=== PATIENT | male | born 1995 | race Caucasian/White ===

== ENCOUNTER 2018-08-02 00:05 | Emergency (ER) | payer MEDICAID ==
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
[2018-08-02] MEDS ORDERED: HYDROcod/ACETAM 5/325 MG TABLET PO STA (01:51)
[2018-08-02 02:13] VITALS: BP 138/86
== END 2018-08-02 02:00 | disposition home or self-care (01) ==
LOC: ED 00:05
DX: S63.501A Unspecified sprain of right wrist, initial encounter (principal); Y04.2XXA Assault by strike against or bumped into by another person, initial encounter; F17.200 Nicotine dependence, unspecified, uncomplicated
CPT/HCPCS: 73130; 99283; A9270

== ENCOUNTER 2019-01-04 17:29 | Outpatient (CLI) | payer MEDICAID | END 2019-01-04 17:30 | disposition critical access hospital (66) | LOC: EMS 17:29 | PROVIDERS: ATTEND Surgery | DX: S69.91XA Unspecified injury of right wrist, hand and finger(s), initial encounter (principal); Y04.2XXA Assault by strike against or bumped into by another person, initial encounter | CPT/HCPCS: A0425; A0429; A0999 ==

== ENCOUNTER 2019-01-04 17:52 | Emergency (ER) | payer MEDICAID ==
[2019-01-04] MEDS ORDERED: HYDROcod/ACETAM 5/325 MG TABLET PO STA (17:58)
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
--- NOTE | 2019-01-04 18:58 | XRAY Report ---
Reason: hand inj Procedure Date: 01/04/2019 Accession Number: [id number] / [id number] Procedure: XR - Hand 3 View RT CPT Code: FULL RESULT: EXAM: RIGHT HAND RADIOGRAPHY EXAM DATE: 01/04/2019 06:19 PM. CLINICAL HISTORY: Right hand injury COMPARISON: HAND 3 VIEW RT 08/02/2018 12:55 AM. TECHNIQUE: 3 views. FINDINGS: Bones: Transverse fracture of the mid fourth metacarpal diaphysis, with mild dorsal displacement and anterior angulation at the fracture site. Joints: Normal. No subluxations. Soft Tissues: Swelling overlying the fracture site. Multiple tiny radiopacities along the skin surface of the second to fifth digits. IMPRESSION: Mildly displaced and angulated transverse fourth metacarpal fracture. RADIA
[2019-01-04 19:09] VITALS: BP 114/73
[2019-01-04] MEDS ORDERED: oxyCODONE 5 MG TABLET PO STA (19:38)
== END 2019-01-04 20:09 | disposition home or self-care (01) ==
LOC: EDUNIT# → ED 17:52
DX: S62.324A Displaced fracture of shaft of fourth metacarpal bone, right hand, initial encounter for closed fracture (principal); W51.XXXA Accidental striking against or bumped into by another person, initial encounter; Y92.009 Unspecified place in unspecified non-institutional (private) residence as the place of occurrence of the external cause; F17.200 Nicotine dependence, unspecified, uncomplicated
CPT/HCPCS: 29125; 73130; 99282; 99283; A9270

== ENCOUNTER 2019-01-22 10:27 | Outpatient (CLI) | payer MEDICAID ==
--- NOTE | 2019-01-22 11:05 | XRAY Report ---
Reason: HAND JOLINT PAIN,RIGHT Procedure Date: 01/22/2019 Accession Number: [id number] / [id number] Procedure: WCP - Hand 3 View RT CPT Code: FULL RESULT: EXAM: RIGHT HAND RADIOGRAPHY EXAM DATE: 01/22/2019 10:24 AM. CLINICAL HISTORY: Continued right hand pain. COMPARISON: HAND 3 VIEW RT 01/04/2019 6:03 PM. TECHNIQUE: 3 views. FINDINGS: Bones: There has been no change in position of transverse right mid fourth metacarpal fracture with mild volar angulation at the fracture site. There has been interval callus formation. Joints: Normal. No subluxations. Soft Tissues: Normal. No soft tissue swelling. IMPRESSION: No change in position of the mildly angulated partially healed right mid fourth metacarpal fracture. RADIA
== END 2019-01-22 10:28 | disposition home or self-care (01) ==
LOC: DI.WCP 10:27
PROVIDERS: ATTEND Family Medicine
DX: S62.324D Displaced fracture of shaft of fourth metacarpal bone, right hand, subsequent encounter for fracture with routine healing (principal)

== ENCOUNTER 2019-01-27 09:01 | Day surgery (SDC) | payer MEDICAID ==
[2019-01-27] MEDS ORDERED: CEFAZOLIN SODIUM IN 0.9 % NACL 0 GM/0 ML BAG IV ONE (09:13)
[2019-01-27] MEDS ORDERED: LACTATED RINGERS 1,000 ML IV ONE (10:21)
--- NOTE | 2019-01-27 10:42 | ANESTHESIA ---
Pre-Anesthesia VS, & Labs - Diagnosis Right 4th metacarpal fracture - Procedure ORIF right 4th metacarpal Vital Signs: Temp Pulse Resp BP Pulse Ox 2.9 C L 92 17 129/78 92 01/27/19 10:28 01/27/19 10:28 01/27/19 10:28 01/27/19 10:28 01/27/19 10:28 Height 5 ft 9 in Weight (kg) 66 kg Body Mass Index 22.1 - NPO >8 hours Home Medications and Allergies Allergies/Adverse Reactions: Allergies Allergy/AdvReac Type Severity Reaction Status Date / Time No Known Drug Allergies Allergy Verified 01/04/19 17:57 Anes History & Medical History - Anesthetic History Anesthesia Complications: reports: No previous complications Family history of Anesthesia Complications: Denies Family history of Malignant Hyperthermia: Denies - Medical History Cardiovascular: reports: None Pulmonary: reports: None Gastrointestinal: reports: None Urinary: reports: None Neuro: reports: None Musculoskeletal: reports: None Endocrine/Autoimmune: reports: None Blood Disorders: reports: None Skin: reports: None Smoking Status: Current every day smoker Psychosocial: reports: Cannabis Exam General: Alert, Oriented x3, Cooperative Dental: WNL Mouth Opening: Greater than 4 Fingerbreadths Neck Mobility: Normal Mallampati classification: I Thyromental Distance: greater than 6 cm Respiratory: Lungs clear Cardiovascular: Regular rate Neurological: Normal speech Mental/Cognitive Status: Alert/Oriented X3 Cognitive Status: Within normal limits Plan Anesthesia Type: General Consent for Procedure(s) Verified and Reviewed: Yes Code Status: Attempt Resuscitation ASA classification: 2-Mild systemic disease Is this case an emergency?: No
[2019-01-27] MEDS ORDERED: CEFAZOLIN SODIUM IN 0.9 % NACL 2 GM/100 ML BAG IV ONE ×2 (10:48→13:20)
[2019-01-27] MEDS ORDERED: ROPIVACAINE 0.5% PF 20 ML AMPULE ONE (11:53)
[2019-01-27] MEDS ORDERED: ROPIVACAINE 0.5% PF 20 ML AMPULE SUBQ ONE (12:45)
[2019-01-27] MEDS ORDERED: LIDOCAINE-MPF 2% 5 ML VIAL IM ONE (13:20)
[2019-01-27] MEDS ORDERED: MIDAZOLAM 2 MG/2 ML VIAL IVP ONE (13:20)
[2019-01-27] MEDS ORDERED: fentaNYL 100 MCG/2 ML VIAL IVP ONE (13:20)
[2019-01-27] MEDS ORDERED: PROPOFOL 200 MG/20 ML VIAL IVP ONE (13:20)
[2019-01-27] MEDS ORDERED: ONDANSETRON 4 MG/2 ML VIAL IVP ONE (13:20)
[2019-01-27] MEDS ORDERED: oxyCODONE 5 MG TABLET PO PRN (13:44)
[2019-01-27] MEDS: HYDROmorphone 1 MG/ML CARPUJECT ONE ×3 (14:00→14:12)
[2019-01-27] MEDS ORDERED: fentaNYL 100 MCG/2 ML VIAL ONE (14:24)
[2019-01-27 14:32] VITALS: BP 122/77
[2019-01-27] MEDS ORDERED: oxyCODONE 5 MG TABLET ONE (15:05)
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
== END 2019-01-27 09:02 | disposition home or self-care (01) ==
LOC: SDS 09:01
PROVIDERS: ATTEND Orthopaedic Surgery
PROC: 0PSP04Z Reposition Right Metacarpal with Internal Fixation Device, Open Approach (ICD-10-PCS; principal; 2019-01-27 10:25)
DX: S62.324P Displaced fracture of shaft of fourth metacarpal bone, right hand, subsequent encounter for fracture with malunion (principal); F17.200 Nicotine dependence, unspecified, uncomplicated
CPT/HCPCS: 26615; A9270; C1713; J0690; J1170; J7120

== ENCOUNTER 2019-02-07 15:24 | Outpatient (CLI) | payer MEDICAID | END 2019-02-07 15:25 | disposition short-term general hospital (02) | LOC: EMS 15:24 | PROVIDERS: ATTEND Surgery | DX: M25.551 Pain in right hip (principal); R51 Headache; M25.521 Pain in right elbow; V59.50XA Passenger in pick-up truck or van injured in collision with unspecified motor vehicles in traffic accident, initial encounter; Y92.413 State road as the place of occurrence of the external cause | CPT/HCPCS: A0425; A0427; A0999 ==

== ENCOUNTER 2019-06-05 08:15 | Outpatient (CLI) | payer MEDICAID ==
[2019-06-05 12:31] LABS: MUDS CUTOFF CONCENTRATIONS CUTOFF CONC BELOW:
[2019-06-05 12:45] LABS: AMPHETAMINE SCREEN,URINE POSITIVE (NEGATIVE); COCAINE SCREEN URINE NEGATIVE (NEGATIVE); METHAMPHETAMINES SCREEN, URINE NEGATIVE (NEGATIVE); OPIATE SCREEN, URINE NEGATIVE (NEGATIVE)
[2019-06-05 12:46] LABS: BENZODIAZEPINES SCREEN, URINE NEGATIVE (NEGATIVE); METHADONE SCREEN, URINE NEGATIVE (NEGATIVE); OXYCODONE SCREEN, URINE NEGATIVE (NEGATIVE); PROPOXYPHENE SCREEN, URINE NEGATIVE (NEGATIVE); TRICYCLIC ANTIDEPRESSANT,URINE NEGATIVE (NEGATIVE)
== END 2019-06-05 23:59 | disposition home or self-care (01) ==
LOC: LAB.R 08:15
PROVIDERS: ATTEND Family Medicine
DX: M25.551 Pain in right hip (principal); F32.9 Major depressive disorder, single episode, unspecified; F41.9 Anxiety disorder, unspecified
CPT/HCPCS: 80306

== ENCOUNTER 2019-09-29 11:50 | Emergency (ER) | payer MEDICAID ==
[2019-09-29 12:00] VITALS: BP 132/83
== END 2019-09-29 12:44 | disposition left against medical advice (07) ==
LOC: ED 11:50
DX: Z53.21 Procedure and treatment not carried out due to patient leaving prior to being seen by health care provider (principal)

== ENCOUNTER 2020-01-09 06:05 | Emergency (ER) | payer MEDICAID ==
[2020-01-09 06:16] VITALS: BP 148/84
[2020-01-09] MEDS ORDERED: NAPROXEN 250 MG TABLET PO STA (07:31)
[2020-01-09] MEDS ORDERED: DOXYCYCLINE 100 MG TABLET PO STA (07:31)
--- NOTE | 2020-01-09 07:31 | ED Physician Documentation ---
PD HPI SKIN - Stated complaint Stated Complaint: STOMACH PX - Chief complaint Chief Complaint: Wound - History obtained from History obtained from: Patient - History of Present Illness Timing - onset: How many days ago (several) Timing - duration: Days (several) Timing - details: Gradual onset, Still present Location: Abdomen Quality / character: Painful, Swelling, Other (He states he injected himself with a blood thinner that he had left over from a surgery about 6 months ago. He states he was feeling that he was cold and having poor circulation and thought the injection would help. He states he had a few leftover and had done that episodically. He denies recreational drug use.). No: Itchy, Discolored Review of Systems Constitutional: denies: Fever, Chills, Myalgias Nose: denies: Rhinorrhea / runny nose, Congestion Throat: denies: Sore throat Respiratory: denies: Cough GI: denies: Vomiting, Diarrhea, Bloody / black stool PD PAST MEDICAL HISTORY - Past Medical History Past Medical History: Yes Cardiovascular: None Respiratory: None Neuro: None Endocrine/Autoimmune: None GI: None : None HEENT: None Psych: Anxiety Musculoskeletal: None Derm: None - Past Surgical History Past Surgical History: Yes Ortho: Other - Present Medications Home Medications: Ambulatory Orders Medication Instructions Recorded Confirmed DULoxetine [Cymbalta] 20 mg PO DAILY 01/09/20 01/09/20 Doxycycline Monohydrate 100 mg PO BID #14 tablet 01/09/20 Naproxen 375 mg PO BID #20 tablet 01/09/20 - Allergies Allergies/Adverse Reactions: Allergies Allergy/AdvReac Type Severity Reaction Status Date / Time No Known Drug Allergies Allergy Verified 09/29/19 11:58 - Social History Does the pt smoke?: Yes Smoking Status: Current every day smoker Does the pt drink ETOH?: Yes Does the pt have substance abuse?: Yes - Immunizations Immunizations are current?: Yes - POLST Patient has POLST: No PD ED PE NORMAL - Vitals Vital signs reviewed: Yes - General General: Alert and oriented X 3, No acute distress, Well developed/nourished - Abdomen Abdomen: Other (Right lower abdominal wall shows a subcutaneous area of firmness palpable only about 1 cm in diameter. There is no fluctuance felt to it. There is no redness or warmth of the skin overlying it. The area is freely movable from the underlying rectus abdominis muscle. There is no deeper te nderness to palpation of the abdomen. Bowel sounds are present normally active.) - Derm Derm: Normal color, Warm and dry - Extremities Extremities: Normal ROM s pain - Neuro Neuro: Alert and oriented X 3, No motor deficit, Normal speech Results - Vitals Vitals: Vital Signs - 24 hr 01/09/20 06:14 Temperature 98.4 C H Heart Rate 104 H Respiratory 18 Rate Blood Pressure 148/84 H O2 Saturation 100 Oxygen O2 Source Room air PD MEDICAL DECISION MAKING - ED course Complexity details: considered differential (I did discuss with him that blood thinner such as Lovenox does not really "improve circulation" and that good hydration and nutrition are the best means for doing that. He states he did not have any more left over of the inject double medicines. He denied recreational drug use. The lesion is a little bit deeper than I would anticipate for skin popping such as heroin. At this point it seems likely to be either small hematoma subcutaneously or small abscess. We can treated with NSAIDs and antibiotics. It was not big enough to need incision and drainage.), d/w patient Departure - Departure Disposition: 01 Home, Self Care Clinical Impression: Abdominal wall abscess Condition: Stable Record reviewed to determine appropriate education?: Yes Instructions: ED Staph Infec Abx Tx Only Prescriptions: Doxycycline Monohydrate 100 mg PO BID #14 tablet Naproxen 375 mg PO BID #20 tablet Comments: If you can, try some warm towels to the area couple of times a day to help improve blood flow to the area and improve the problem. Doxycycline antibiotic twice daily for a week for presumed small localized infection. It is possible it may be just a collection of blood there (called a hematoma) and will absorb up slowly over time. Naproxen anti-inflammatory twice daily to help reduce inflammation and tenderness. This should decrease in tenderness over the next several days to week and the lump itself may take a week or 2 to fully go away. Recheck if it does not or worsens. Discharge Date/Time: 01/09/20 07:42
== END 2020-01-09 07:42 | disposition home or self-care (01) ==
LOC: ED 06:05
DX: L02.211 Cutaneous abscess of abdominal wall (principal); F17.200 Nicotine dependence, unspecified, uncomplicated
CPT/HCPCS: 99282; 99284; A9270

== ENCOUNTER 2020-03-30 17:42 | Emergency (ER) | payer MEDICAID ==
--- NOTE | 2020-03-30 18:12 | ED Physician Documentation ---
History of Present Illness - Stated complaint Stated Complaint: HEAD INJ - Chief complaint Chief Complaint: Laceration - Additonal information Additional information: 24-year-old male comes to the emergency department for evaluation of a head injury. He was with a friend who was utilizing a hammer and the hammer broke and the hammer head flew and hit him in his left upper forehead. He had no loss of consciousness but does have a superficial appearing laceration just below his hairline. He denies any previous history of head injury or trauma. In triage of the nurses noted mild pupil asymmetry with the right pupil being slightly lar tana than the left. He has no obvious focal neuro deficits. Past medical history is negative for hypertension diabetes. He does smoke and socially drink as well as use cannabis but he denies any other illicit drug use. On initial exam in the room he appears very well he is alert oriented and in no acute distress. Review of Systems Constitutional: denies: Fever, Chills Eyes: denies: Loss of vision, Decreased vision, Photophobia Ears: denies: Loss of hearing Nose: denies: Rhinorrhea / runny nose Throat: denies: Dental pain / toothache, Oral lesions / sores, Sore throat Cardiac: denies: Chest pain / pressure, Palpitations Respiratory: denies: Dyspnea, Cough GI: denies: Abdominal Pain, Abdominal Swelling, Nausea : denies: Dysuria, Frequency Skin: denies: Rash, Lesions Musculoskeletal: denies: Neck pain, Back pain Neurologic: reports: Head injury (scalp contusion left forehead). denies: Generalized weakness, Focal weakness, Numbness, Difficulty speaking, Syncope, Seizure, Confused, Altered mental status, Headache, LOC PD PAST MEDICAL HISTORY - Past Medical History Cardiovascular: None Respiratory: None Neuro: None Endocrine/Autoimmune: None GI: None : None HEENT: None Psych: Anxiety Musculoskeletal: None Derm: None - Past Surgical History Past Surgical History: Yes Ortho: Other - Present Medications Home Medications: Ambulatory Orders Medication Instructions Recorded Confirmed DULoxetine [Cymbalta] 20 mg PO DAILY 01/09/20 01/09/20 Doxycycline Monohydrate 100 mg PO BID #14 tablet 01/09/20 Naproxen 375 mg PO BID #20 tablet 01/09/20 Ibuprofen [Motrin] 600 mg PO Q6H PRN #30 tab 03/30/20 - Allergies Allergies/Adverse Reactions: Allergies Allergy/AdvReac Type Severity Reaction Status Date / Time No Known Drug Allergies Allergy Verified 09/29/19 11:58 - Social History Does the pt smoke?: Yes Smoking Status: Current every day smoker Does the pt drink ETOH?: Yes Does the pt have substance abuse?: Yes - Immunizations Immunizations are current?: Yes - POLST Patient has POLST: No PD ED PE NORMAL - General General: Alert and oriented X 3, No acute distress, Well developed/nourished - HEENT HEENT: PERRL (Very mild pupil asymmetry noted. Right pupil 4 mm briskly reactive. Left pupil 3 mm briskly reactive. Positive accommodation bilateral), EOMI, Ears normal, Moist mucous membranes, Pharynx benign, Other (contusion left scalp just below hairline on forehead) - Neck Neck: Supple, no meningeal sign, No adenopathy - Cardiac Cardiac: RRR, No murmur - Respiratory Respiratory: No respiratory distress - Abdomen Abdomen: Normal bowel sounds, Soft - Back Back: No CVA TTP - Derm Derm: Normal color, Warm and dry, Other (1.5 cm laceration left upper forehead) - Extremities Extremities: No deformity, No tenderness to palpate, Normal ROM s pain, No edema - Neuro Neuro: Alert and oriented X 3, chairman & ceo 2-12 intact, No motor deficit, No sensory deficit, Normal speech Results - Vitals Vitals: Vital Signs - 24 hr 03/30/20 03/30/20 17:48 19:32 Temperature 36.8 C Heart Rate 99 81 Respiratory 16 20 Rate Blood Pressure 118/68 112/69 O2 Saturation 100 99 Oxygen O2 Source Room air - Rads (name of study) CT head Radiology: Final report received (No CT evidence of acute intracranial pathology. No gross acute skull fracture. Bilateral orbital mobley are not fact) Procedures - Laceration (location) forehead laceration Length in cm: 1.5 Wound type: Irregular Neurovascular status: Sensory intact Wound Preparation: Chlorhexadine, Hibiclens Skin layer closure: Nylon, Size #-0 - enter number (4), Sutures - enter # (2) Other: Patient tolerated well, No complications, Neurovascular intact Complexity: Simple PD MEDICAL DECISION MAKING - ED course Complexity details: reviewed results, considered differential, d/w patient ED course: 24-year-old male brought to the emergency department for evaluation of head injury. He was helping a friend work on a car when a hammer that they were using broke and hit him in his left forehead. He had no loss of consciousness. ER nurses noted mild pupil asymmetry at triage though that had nearly fully abated by the time of my initial exam. He however had no other focal neuro deficits. A head CT was completed and did not show any intracranial injury or skull fracture. During his time in the emergency department he is remained alert and oriented with no focal neuro deficits cerebellar exam is intact. The laceration to his left upper forehead was closed with 2 sutures. He does have a sizable contusion surrounding that laceration. He does endorse a mild headache and we did discuss routine concussion and emergent return precautions. Departure - Departure Disposition: 01 Home, Self Care Clinical Impression: Head contusion Qualifiers: Encounter type: initial encounter Contusion of head detail: other part of head Qualified Code(s): S00.83XA - Contusion of other part of head, initial encounter Forehead laceration Qualifiers: Encounter type: initial encounter Qualified Code(s): S01.81XA - Laceration without foreign body of other part of head, initial encounter Concussion Qualifiers: Encounter type: initial encounter Loss of consciousness presence/duration: without LOC Qualified Code(s): S06.0X0A - Concussion without loss of consciousness, initial encounter Condition: Stable Instructions: ED Head Injury Closed, ED Laceration All, Concussion Dc Prescriptions: Ibuprofen [Motrin] 600 mg PO Q6H PRN #30 tab PRN Reason: Pain Comments: Quang the CT scan did not show any skull fractures or broken bones in your face. It also did not show any bruising bleeding or swelling in your brain. You do have a contusion or bruising on your forehead surrounding the laceration. The 2 sutures that were placed today should come out in about 5 days. You can gently wash the laceration with warm soap and water apply any antibiotic ointment and a simple bandage. You do most likely have a concussion following this injury. I do recommend you get plenty of sleep at home stay well-hydrated. Please avoid cannabis use, extended TV or video game playing. You can take Tylenol or ibuprofen as prescribed for pain. If you develop a suddenly severe headache, have slurred speech arm or leg weakness or have uncontrolled vomiting please return immediately to the emergency department
[2020-03-30] MEDS ORDERED: TETANUS/DIPHTHERIA/PERTUSSIS 0.5 ML SYRINGE IM ONE (18:32)
[2020-03-30 19:32] VITALS: BP 112/69
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
[2020-03-30] MEDS ORDERED: IBUPROFEN 600 MG TABLET PO STA (20:29)
== END 2020-03-30 20:50 | disposition home or self-care (01) ==
LOC: ED 17:42
DX: S01.81XA Laceration without foreign body of other part of head, initial encounter (principal); S06.0X0A Concussion without loss of consciousness, initial encounter; W20.8XXA Other cause of strike by thrown, projected or falling object, initial encounter; W27.8XXA Contact with other nonpowered hand tool, initial encounter; Y93.89 Activity, other specified; F17.200 Nicotine dependence, unspecified, uncomplicated; Z23 Encounter for immunization
CPT/HCPCS: 12011; 70450; 90471; 90715; 99284; A9270

== ENCOUNTER 2020-07-08 03:01 | Emergency (ER) | payer MEDICAID ==
--- NOTE | 2020-07-08 03:12 | ED Physician Documentation ---
History of Present Illness - Stated complaint Stated Complaint: RT ARM PX - Chief complaint Chief Complaint: Ext Problem - History obtained from History obtained from: Patient - History of Present Illness Timing: How many minutes ago (20-30) Pain level max: 0 Pain level now: 0 Improved by: nothing Worsened by: no exacerbating factors - Additonal information Additional information: patient has c/o related to his RUE but difficulty in describing his symptoms. he denies any pain, weakness or numbness. denies injury. patient says approximately 20-30 minutes [employer]EE[employer] while smoking marijuana, he had rapid onset of sensation of all of my muscles twisting and bunching up here (points to his wrist). he says he has intermittent sensation of bubbles or air under my skin of RUE. he is right hand dominant. he says he has used marijuana many times without similar symptoms. He says his symptoms are most pronounced in right FA and wrist but involve entire RUE up to shoulder. no exacerbating or ameliorating factors Review of Systems Constitutional: denies: Fever Skin: reports: Reviewed and negative Musculoskeletal: denies: Neck pain, Extremity pain, Joint pain, Extremity swelling PD PAST MEDICAL HISTORY - Past Medical History Cardiovascular: None Respiratory: None Neuro: None Endocrine/Autoimmune: None GI: None : None HEENT: None Psych: Anxiety Musculoskeletal: None Derm: None - Past Surgical History Past Surgical History: Yes Ortho: Other - Allergies Allergies/Adverse Reactions: Allergies Allergy/AdvReac Type Severity Reaction Status Date / Time No Known Drug Allergies Allergy Verified 07/08/20 03:14 - Social History Does the pt smoke?: Yes Smoking Status: Current every day smoker Does the pt drink ETOH?: Yes Does the pt have substance abuse?: Yes - Immunizations Immunizations are current?: Yes - POLST Patient has POLST: No PD ED PE NORMAL - Vitals Vital signs reviewed: Yes - General General: Alert and oriented X 3, No acute distress, Well developed/nourished - Derm Derm: Normal color, Warm and dry, No rash - Extremities Extremities: No deformity, No tenderness to palpate, Normal ROM s pain, No edema, Other (brisk capillary refill in right fingers, strong radial pulse. no erythema, swelling, tenderness. no pain with active or passive extension of wrist/FA or at elbow) - Neuro Neuro: No motor deficit, No sensory deficit Results - Vitals Vitals: Oxygen O2 Source Room air PD MEDICAL DECISION MAKING - ED course Complexity details: reviewed old records, considered differential, d/w patient ED course: no evidence of infectious process. denies recent injury. no evidence of compartment syndrome. strong pulse (radial) and brisk capillary refill and LTS is intact in RUE. I explained that there is no evidence of acute/emergent process and emergent tests are not likely to be helpful/diagnostic at this time. he appears anxious at times and thus offered lorazepam which he accepts. I encouraged him to return if symptoms worsen or new symptoms develop. Departure - Departure Disposition: 01 Home, Self Care Clinical Impression: Pain in extremity Condition: Good Instructions: ED Symptoms No Dx, ED Compartment Syndrome At Risk For Discharge Date/Time: 07/08/20 03:54
[2020-07-08 03:14] VITALS: BP 146/89
[2020-07-08] MEDS ORDERED: LORazepam 1 MG TABLET PO STA (03:43)
== END 2020-07-08 03:54 | disposition home or self-care (01) ==
LOC: ED 03:01
DX: M79.601 Pain in right arm (principal); F17.200 Nicotine dependence, unspecified, uncomplicated
CPT/HCPCS: 99282; 99283; J8499

== ENCOUNTER 2020-11-08 13:03 | Emergency (ER) | payer MEDICAID ==
[2020-11-08 13:33] VITALS: BP 128/85
--- NOTE | 2020-11-08 14:24 | ED Physician Documentation ---
PD HPI SKIN - Stated complaint Stated Complaint: FACE RASH - Chief complaint Chief Complaint: Wound - History obtained from History obtained from: Patient - Additional information Additional information: He has been on Keflex for 2 days for cellulitis of the right buttock. That seems to be improving but has noticed since he started this antibiotic that he has a slightly painful lesion on the right scientologist. He denies fevers or chills. No history of MRSA. Review of Systems Constitutional: denies: Fever, Chills Ears: denies: Loss of hearing, Ear pain Nose: denies: Rhinorrhea / runny nose, Congestion PD PAST MEDICAL HISTORY - Past Medical History Past Medical History: Yes Cardiovascular: None Respiratory: None Neuro: Tremors Endocrine/Autoimmune: None GI: None : None HEENT: None Psych: Anxiety Musculoskeletal: None Derm: None - Past Surgical History Past Surgical History: Yes Ortho: Other - Present Medications Home Medications: Ambulatory Orders Medication Instructions Recorded Confirmed Mupirocin 2% Oint [Bactroban 2% 1 applic TOP BID #50 gm 11/08/20 Oint] Sulfamethox/Trimeth 800/160 1 tablet PO BID 7 Days #14 tablet 11/08/20 [Bactrim Ds] cephALEXin [Keflex] 500 mg PO Q6H 11/08/20 11/08/20 - Allergies Allergies/Adverse Reactions: Allergies Allergy/AdvReac Type Severity Reaction Status Date / Time No Known Drug Allergies Allergy Verified 11/08/20 13:29 - Social History Does the pt smoke?: Yes Smoking Status: Current every day smoker Does the pt drink ETOH?: Yes Does the pt have substance abuse?: Yes Substance Use and Type: Marijuana - Immunizations Immunizations are current?: Yes - POLST Patient has POLST: No PD ED PE NORMAL - Vitals Vital signs reviewed: Yes - General General: Alert and oriented X 3, No acute distress - HEENT HEENT: PERRL, EOMI, Other (There is a denuded area with impetiginous change measuring about 2 and half centimeters square on the right scientologist a culture was taken during exam.) - Derm Derm: Other (Right buttock with mild cellulitis, no pustule) - Neuro Neuro: Alert and oriented X 3, Normal speech Results - Vitals Vitals: Vital Signs - 24 hr 11/08/20 13:30 Temperature 37.2 C Heart Rate 101 H Respiratory 16 Rate Blood Pressure 128/85 H O2 Saturation 100 Oxygen O2 Source Room air PD MEDICAL DECISION MAKING - ED course ED course: My suspicion is this represents MRSA impetigo/cellulitis and. he was broadened to Bactrim pending Wound culture results Departure - Departure Disposition: 01 Home, Self Care Clinical Impression: Staph skin infection Condition: Good Record reviewed to determine appropriate education?: Yes Instructions: ED Staph Infec Abx Tx Only Prescriptions: Sulfamethox/Trimeth 800/160 [Bactrim Ds] 1 tablet PO BID 7 Days #14 tablet Mupirocin 2% Oint [Bactroban 2% Oint] 1 applic TOP BID #50 gm Comments: A wound culture is pending, we will call you in approximately 2 days if a change in antibiotics or resistant organisms identified. Follow-up with your primary care physician late week for recheck, return if worse.
== END 2020-11-08 15:10 | disposition home or self-care (01) ==
LOC: ED 13:03
DX: L03.211 Cellulitis of face (principal); B95.62 Methicillin resistant Staphylococcus aureus infection as the cause of diseases classified elsewhere; L01.00 Impetigo, unspecified; L03.317 Cellulitis of buttock; F17.200 Nicotine dependence, unspecified, uncomplicated
CPT/HCPCS: 87070; 87181; 87205; 99283

== ENCOUNTER 2020-11-28 12:29 | Emergency (ER) | payer MEDICAID ==
--- OUTSIDE RECORDS SUMMARY | 2020-11-28 12:32 | EXTERNAL MEDICAL SUMMARY RPT | Continuity of Care Document ---
:1995 Demographics Phone Unavailable Preferred Language Unknown Marital Status Unknown [employer]an Affiliation Unknown Race Unknown Ethnic Group Unknown Author Organization [place] Address [address] [place] [address] Phone Problems date description facility [id number] [facility] 20201024 Rt hip abscess [facility] 20201025 [facility] 20201031 [facility] Social History date description facility [id number]
--- NOTE | 2020-11-28 13:00 | ED Physician Documentation ---
PD HPI SKIN - Stated complaint Stated Complaint: POSSIBLE INFECTION/HEAD PX - Chief complaint Chief Complaint: Wound - History obtained from History obtained from: Patient - Additional information Additional information: Patient returns emergency department for chief complaint of infected wounds on face. Patient was seen here on November 08 for a buttock infection as well as wounds on his face which were cultured and ultimately, it grew out Bactrim resistant MRSA. Patient had been started on Bactrim preemptively, but when the culture and sensitivities came back, multiple attempts were made to reach the patient and switch him over to doxycycline instead. However, patient was unable to be reached. He states he finished his course of antibiotics at that time and thought he noticed a little improvement but since then, has felt that his symptoms recurred a little. Patient denies fever chills. No spontaneous drainage, though he has been picking at his scabs to try to get the wounds to drain. Patient states he gets some drainage if he picks the scab off. Patient denies any other complaints at this time. Review of Systems Ten Systems: 10 systems reviewed and negative Constitutional: reports: Reviewed and negative Eyes: reports: Reviewed and negative Ears: reports: Reviewed and negative Nose: reports: Reviewed and negative Throat: reports: Reviewed and negative Cardiac: reports: Reviewed and negative Respiratory: reports: Reviewed and negative GI: reports: Reviewed and negative : reports: Reviewed and negative Skin: reports: Lesions, Other (Swelling, redness.) Musculoskeletal: reports: Reviewed and negative Neurologic: reports: Reviewed and negative Psychiatric: reports: Reviewed and negative Endocrine: reports: Reviewed and negative Immunocompromised: reports: Reviewed and negative PD PAST MEDICAL HISTORY - Past Medical History Cardiovascular: None Respiratory: None Neuro: Tremors Endocrine/Autoimmune: None GI: None : None HEENT: None Psych: Anxiety Musculoskeletal: None Derm: None - Past Surgical History Past Surgical History: Yes Ortho: Other - Present Medications Home Medications: Ambulatory Orders Medication Instructions Recorded Confirmed Mupirocin 2% Oint [Bactroban 2% 1 applic TOP BID #50 gm 11/08/20 Oint] Sulfamethox/Trimeth 800/160 1 tablet PO BID 7 Days #14 tablet 11/08/20 [Bactrim Ds] cephALEXin [Keflex] 500 mg PO Q6H 11/08/20 11/08/20 Doxycycline Hyclate 150 mg PO DAILY #20 tablet 11/28/20 - Allergies Allergies/Adverse Reactions: Allergies Allergy/AdvReac Type Severity Reaction Status Date / Time No Known Drug Allergies Allergy Verified 11/28/20 12:43 - Social History Does the pt smoke?: Yes Smoking Status: Current every day smoker Does the pt drink ETOH?: Yes Does the pt have substance abuse?: Yes - Immunizations Immunizations are current?: Yes - POLST Patient has POLST: No PD ED PE NORMAL - Vitals Vital signs reviewed: Yes - General General: Alert and oriented X 3, No acute distress - HEENT HEENT: PERRL, EOMI, Moist mucous membranes, Other (Multiple scabs on patient's L moravian including one large one. No distinct fluctuance. Does not involve ear, periorbital area, or maxillary area.) - Neck Neck: Supple, no meningeal sign - Respiratory Respiratory: No respiratory distress - Derm Derm: Warm and dry, Other (Multiple scabs on face including large scab over left moravian. No induration Or drainage, either spontaneous or expressed. Mild edema with light erythema extending away from wounds. Does not involve ear or anterior face, including periorbital area.) - Extremities Extremities: No deformity - Neuro Neuro: Alert and oriented X 3 - Psych Psych: Normal mood, Normal affect Results - Vitals Vitals: Vital Signs - 24 hr 11/28/20 12:43 Temperature 36.5 C Heart Rate 90 Respiratory 16 Rate Blood Pressure 132/81 H O2 Saturation 98 Oxygen O2 Source Room air PD MEDICAL DECISION MAKING - ED course Complexity details: considered differential, d/w patient ED course: I reviewed the patient's records and it did appear that his culture had shown MRSA which was resistant to Bactrim. As such, the patient was put on doxycycline for this. I have advised the patient to stop picking at his wounds and to take the antibiotic every day as directed. We discussed the usual indications for return. Departure - Departure Disposition: 01 Home, Self Care Clinical Impression: Wound infection Condition: Stable Instructions: ED Staph Infec Abx Tx Only Prescriptions: Doxycycline Hyclate 150 mg PO DAILY #20 tablet Comments: It is not clear whether the pink skin and swelling is due to the ongoing wounds that you have or whether he actually have infection again. If this does not clear up with this round of antibiotics, it is most likely not infection but simply the chronic nature of your wounds. Please avoid the temptation to pick the scabs off or try to open the wounds up, as this will just prolong your symptoms. Please take the antibiotics every day as directed until the course is complete. Please follow-up with your primary care physician within the next week for reevaluation.
--- OUTSIDE RECORDS SUMMARY | 2020-11-28 13:04 | EXTERNAL MEDICAL SUMMARY RPT | Continuity of Care Document ---
:1995 Demographics Phone Unavailable Preferred Language Unknown Marital Status Unknown Denominational Affiliation Unknown Race Unknown Ethnic Group Unknown Author Organization [place] Address [address] [place] [address] Phone Problems date description facility [id number] [facility] 20201024 Rt hip abscess [facility] 20201025 [facility] 20201031 [facility] Social History date description facility [id number]
[2020-11-28 13:27] VITALS: BP 124/96
== END 2020-11-28 13:39 | disposition home or self-care (01) ==
LOC: ED 12:29
DX: L08.9 Local infection of the skin and subcutaneous tissue, unspecified (principal); B95.62 Methicillin resistant Staphylococcus aureus infection as the cause of diseases classified elsewhere; Z16.29 Resistance to other single specified antibiotic; F17.200 Nicotine dependence, unspecified, uncomplicated
CPT/HCPCS: 99282; 99284

== ENCOUNTER 2021-05-01 20:25 | Emergency (ER) | payer MEDICAID ==
[2021-05-01 22:29] VITALS: BP 131/72
--- NOTE | 2021-05-01 23:55 | ED Physician Documentation ---
PD HPI SKIN - Stated complaint Stated Complaint: RT LEG PX - Chief complaint Chief Complaint: Wound PD PAST MEDICAL HISTORY - Past Medical History Cardiovascular: None Respiratory: None Neuro: Tremors Endocrine/Autoimmune: None GI: None : None HEENT: None Psych: Anxiety Musculoskeletal: None Derm: None - Past Surgical History Past Surgical History: Yes Ortho: Other - Present Medications Home Medications: Ambulatory Orders Medication Instructions Recorded Confirmed No Known Home Medications 05/01/21 05/01/21 - Allergies Allergies/Adverse Reactions: Allergies Allergy/AdvReac Type Severity Reaction Status Date / Time No Known Drug Allergies Allergy Verified 05/01/21 20:40 - Social History Does the pt smoke?: Yes Smoking Status: Current every day smoker Does the pt drink ETOH?: Yes Does the pt have substance abuse?: Yes - Immunizations Immunizations are current?: Yes - POLST Patient has POLST: No Results - Vitals Vitals: Vital Signs - 24 hr 05/01/21 05/01/21 20:38 22:29 Temperature 36.4 C L 36.5 C Heart Rate 126 H 99 Respiratory 16 16 Rate Blood Pressure 132/76 H 131/72 H O2 Saturation 99 98 Oxygen O2 Source Room air PD MEDICAL DECISION MAKING - ED course ED course: As I went to assess this patient, he was walking out of the room. I explained that I was going to evaluate him at this time but he says he wants to leave now
== END 2021-05-02 00:15 | disposition left against medical advice (07) ==
LOC: ED 20:25
DX: M79.604 Pain in right leg (principal); F17.200 Nicotine dependence, unspecified, uncomplicated

== ENCOUNTER 2021-05-02 10:58 | Emergency (ER) | payer MEDICAID ==
[2021-05-02 11:14] VITALS: BP 121/77
--- NOTE | 2021-05-02 12:07 | ED Physician Documentation ---
History of Present Illness - Stated complaint Stated Complaint: RT LEG PX - Chief complaint Chief Complaint: Ext Problem - History obtained from History obtained from: Patient - Additonal information Additional information: 25 yo M presented with right lower leg redness and swelling for several days, but worse today. He states "I don't know what happened." He denies any injury though later refers to trying to "poke it myself." He does report a history of IVDU though states he has not used in a long time and has no history of abscess. He denies any fever, chills, or flu like sx. He states he is just here for antibiotics and does not want any other treatment because he states "I have a fear of needles." Review of Systems Constitutional: reports: Reviewed and negative Eyes: reports: Reviewed and negative Ears: reports: Reviewed and negative Nose: reports: Reviewed and negative Throat: reports: Reviewed and negative Cardiac: reports: Reviewed and negative Respiratory: reports: Reviewed and negative GI: reports: Reviewed and negative : reports: Reviewed and negative Skin: reports: Lesions, Abrasion (s), Other (right leg redness and tenderness) Musculoskeletal: reports: Extremity pain (Right leg swelling and tenderness) Neurologic: reports: Reviewed and negative Psychiatric: reports: Reviewed and negative Endocrine: reports: Reviewed and negative Immunocompromised: reports: Reviewed and negative PD PAST MEDICAL HISTORY - Past Medical History Past Medical History: Yes Cardiovascular: None Respiratory: None Neuro: Tremors Endocrine/Autoimmune: None GI: None : None HEENT: None Psych: Anxiety Musculoskeletal: None Derm: None - Past Surgical History Past Surgical History: Yes Ortho: Other - Present Medications Home Medications: Ambulatory Orders Medication Instructions Recorded Confirmed Sulfamethox/Trimeth 800/160 1 each PO BID #14 tablet 05/02/21 [Bactrim Ds 800/160] cephALEXin [Keflex] 500 mg PO Q6H #28 05/02/21 - Allergies Allergies/Adverse Reactions: Allergies Allergy/AdvReac Type Severity Reaction Status Date / Time No Known Drug Allergies Allergy Verified 05/02/21 11:13 - Social History Does the pt smoke?: Yes Smoking Status: Current every day smoker Does the pt drink ETOH?: Yes Does the pt have substance abuse?: Yes - Immunizations Immunizations are current?: Yes - POLST Patient has POLST: No PD ED PE NORMAL - General General: Alert and oriented X 3, No acute distress, Well developed/nourished - HEENT HEENT: Atraumatic, PERRL, Moist mucous membranes - Neck Neck: Supple, no meningeal sign, No JVD - Cardiac Cardiac: No murmur - Respiratory Respiratory: No respiratory distress, Clear bilaterally - Abdomen Abdomen: Normal bowel sounds, Soft, Non tender, Non distended, No organomegaly - Derm Derm: Other (There is 1cm abrasion proximal right tibia that has a small amt of fluctuance underneath it and a pinpoint pustule distal to it. There is erythema around the wound extending into the lepe and a small amt of streaking into the distal thigh. Pt refused palpation or ore detaileexamination of the area. ) - Extremities Extremities: Normal ROM s pain (Normal ROM of the right knee and ankle, no joint erythema or tenderness. ). No: No deformity, No tenderness to palpate (There is generalized swelling of the right lower leg and tenderness around abscess. ) - Neuro Neuro: Alert and oriented X 3, No motor deficit, No sensory deficit, Normal speech Eye Opening: Spontaneous Motor: Obeys Commands Verbal: Oriented GCS Score: 15 Results - Vitals Vitals: Vital Signs - 24 hr 05/02/21 11:10 Temperature 36.8 C Heart Rate 116 H Respiratory 15 Rate Blood Pressure 121/77 O2 Saturation 100 Oxygen O2 Source Room air PD MEDICAL DECISION MAKING - ED course Complexity details: d/w patient ED course: 25 yo M who presented with a right lower leg abscess w/ surrounding erythema and streaking. He is tachycardic but afebrile. Differentials include abscess, cellulitis, and bactermia 2/2 to abscess. The patient adamantly refused I&D or lab evaluation stating fear of needles. I explained thoroughly to the patient that antibiotics may not be sufficient to treat the abscess and strongly recommended I&D and culture of the wound. I explained that if not properly treated that the would could develop into a systemic infection such as sepsis or necrotizing fasciitis. The patient continued to decline lab evaluation or I&D. He stated he only wanted antibiotics and refused any additional treatment. I will treat presumptively for MRSA abscess w/ bactrim and add keflex for cellulitis coverage. He was advised to use a warm compress to assist w/ drainage and avoid self-I&D due to concern for contamination. Pt advised to return if redness spreads or leg becomes more painful, or if he develops a fever, chills, weakness, or otherwise new concerns. . Departure - Departure Disposition: 01 Home, Self Care Clinical Impression: Abscess Condition: Good Plan of Treatment: You refused an incision and draining of the abscess which was recommended. I advise you to use a warm compress to help encourage it to self drain. Take antibiotics as prescribed. Return if you develop a fever or worsening symptoms. Instructions: ED Abscess Abx Tx Only Ch Prescriptions: Sulfamethox/Trimeth 800/160 [Bactrim Ds 800/160] 1 each PO BID #14 tablet cephALEXin [Keflex] 500 mg PO Q6H #28 Discharge Date/Time: 05/02/21 12:06
== END 2021-05-02 12:06 | disposition home or self-care (01) ==
LOC: ED 10:58
DX: L98.9 Disorder of the skin and subcutaneous tissue, unspecified (principal); M79.604 Pain in right leg; F17.200 Nicotine dependence, unspecified, uncomplicated
CPT/HCPCS: 99282; 99283

== ENCOUNTER 2021-07-29 06:00 | Outpatient (CLI) | payer MEDICAID | END 2021-07-29 06:01 | disposition critical access hospital (66) | LOC: EMS 06:00 | DX: R46.89 Other symptoms and signs involving appearance and behavior (principal) | CPT/HCPCS: A0425; A0429; A0999 ==

== ENCOUNTER 2021-07-29 06:13 | Emergency (ER) | payer MEDICAID ==
[2021-07-29] MEDS ORDERED: KETAMINE 500 MG/10 ML VIAL IM STA (06:21)
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
[2021-07-29 06:46] LABS: BASOPHILS # (AUTO) 0.1 10^3/uL (0.0-0.1); BASOPHILS % (AUTO) 0.5 %; EOSINOPHILS # (AUTO) 0.2 10^3/uL (0.0-0.7); EOSINOPHILS % (AUTO) 1.7 %; HCT - HEMATOCRIT 45.6 % (42.0-52.0); HGB - HEMOGLOBIN 15.3 g/dL (14.0-18.0); LYMPHOCYTES # (AUTO) 4.1 10^3/uL (1.5-3.5); LYMPHOCYTES % (AUTO) 42.8 %; MEAN CORPUSCULAR HEMOGLOBIN 31.2 pg (27.0-31.0); MEAN CORPUSCULAR HGB CONC 33.6 g/dL (32.0-36.0); MEAN CORPUSCULAR VOLUME 92.9 fL (80.0-94.0); MEAN PLATELET VOLUME 9.2 fL (7.4-11.4); MONOCYTES # (AUTO) 0.7 10^3/uL (0.0-1.0); MONOCYTES % (AUTO) 7.7 %; NEUTROPHILS # (AUTO) 4.5 10^3/uL (1.5-6.6); NEUTROPHILS % (AUTO) 47.1 %; PLT - PLATELET COUNT 282 10^3/uL (130-450); RED BLOOD COUNT 4.91 10^6/uL (4.70-6.10); RED CELL DISTRIBUTION WIDTH 12.3 % (12.0-15.0); WHITE BLOOD COUNT 9.5 x10^3/uL (4.8-10.8)
[2021-07-29 06:58] LABS: MUDS CUTOFF CONCENTRATIONS CUTOFF CONC BELOW:
[2021-07-29 07:01] LABS: ACETAMINOPHEN < 10 ug/mL (10-30); ALBUMIN 4.2 g/dL (3.2-5.5); ALBUMIN/GLOBULIN RATIO 1.3 (1.0-2.2); ALKALINE PHOSPHATASE 79 IU/L (42-121); ALT ALANINE AMINOTRANSFERASE 19 IU/L (10-60); AST ASPARTATE AMINOTRANSFERASE 30 IU/L (10-42); BILIRUBIN,TOTAL 0.6 mg/dL (0.2-1.0); BUN - BLOOD UREA NITROGEN 16 mg/dL (6-20); CALCIUM 9.4 mg/dL (8.5-10.3); CARBON DIOXIDE - CO2 27 mmol/L (21-32); CHLORIDE 98 mmol/L (101-111); ETOH - ETHANOL < 5.0 mg/dL; GFR - MDRD 90 (>89); GLUCOSE 145 mg/dL (70-100); LIPASE 24 U/L (22-51); POTASSIUM 3.9 mmol/L (3.5-5.0); SALICYLATE < 6.0 mg/dL; SODIUM 136 mmol/L (135-145); TOTAL PROTEIN 7.5 g/dL (6.7-8.2)
[2021-07-29 07:01] LABS: BILIRUBIN,URINE NEGATIVE (NEGATIVE); GLUCOSE, URINE (UA) NEGATIVE (NEGATIVE); KETONES,URINE (UA) TRACE mg/dL (NEGATIVE); LEUKOCYTE ESTERASE, URINE NEGATIVE (NEGATIVE); NITRITE,URINE NEGATIVE (NEGATIVE); OCCULT BLOOD,URINE LARGE (NEGATIVE); PH,URINE 6.5 PH (5.0-7.5); PROTEIN,URINE TRACE mg/dL (NEGATIVE); UROBILINOGEN,URINE 1 (NORMAL) E.U./dL (NORMAL)
[2021-07-29 07:04] LABS: CLARITY,URINE HAZY (CLEAR)
[2021-07-29] MEDS ORDERED: DROPERIDOL 5 MG/2 ML VIAL IVP STA (07:12)
[2021-07-29] MEDS ORDERED: SODIUM CHLORIDE 0.9% 1,000 ML IV STA (07:14)
[2021-07-29] MEDS ORDERED: LORazepam 2 MG/ML VIAL IVP STA (07:16)
[2021-07-29 07:18] LABS: AMORPHOUS SEDIMENT,UR Marked /LPF; BACTERIA,URINE Many /HPF (None Seen); MUCUS,URINE Marked Strands; RBC,URINE TNTC /HPF (0-5); SQUAMOUS EPITHELIAL CELL,UR MOD Squamous (<= Few)
[2021-07-29 07:19] LABS: BARBITURATE SCREEN,UR NEGATIVE (NEGATIVE); BENZODIAZEPINES SCREEN, URINE NEGATIVE (NEGATIVE); COCAINE SCREEN URINE NEGATIVE (NEGATIVE); EPITHELIAL CELLS,UR MANY Transitional /HPF (<= Few); METHADONE SCREEN, URINE NEGATIVE (NEGATIVE); METHAMPHETAMINES SCREEN, URINE POSITIVE (NEGATIVE); OXYCODONE SCREEN, URINE NEGATIVE (NEGATIVE); PROPOXYPHENE SCREEN, URINE NEGATIVE (NEGATIVE); THC CANNABINOID SCREEN, URINE POSITIVE (NEGATIVE); TRICYCLIC ANTIDEPRESSANT,URINE NEGATIVE (NEGATIVE)
[2021-07-29 07:20] LABS: AMPHETAMINE SCREEN,URINE POSITIVE (NEGATIVE); OPIATE SCREEN, URINE POSITIVE (NEGATIVE)
--- NOTE | 2021-07-29 07:20 | ED Physician Documentation ---
Face to Face for Restraints - Immediate Situation Face to Face Evaluation Date: 07/29/21 Face to Face Evaluation Time: 07:18 Restraint Situation: Locking, Chemical Patient's Reactions to the Intervention: Fighting restraints, Screaming/Yelling - Behavioral Condition Attitude: Other (beligerent) Behavior: Belligerent Orientation: Person Mood: Labile, Angry - Evaluation Review of Systems: normal voice and respirations. No vomiting. Pertinent History/Illicit Drugs/Medications/Results: substance use with agitation and psychosis. - Plan Need to Continue or Terminate Violent or Chemical Restraint: chemical sedation and calming. Hope for release of restraints as calms.
--- NOTE | 2021-07-29 10:54 | ED Physician Documentation ---
Face to Face for Restraints - Immediate Situation Face to Face Evaluation Date: 07/29/21 Face to Face Evaluation Time: 10:52 Restraint Situation: Locking Patient's Reactions to the Intervention: Fighting restraints - Behavioral Condition Attitude: Other (he is alternating sleeping and then rouses with thrashing and yelling but not following commands, then back to sleep. ) Behavior: Uncooperative, Agitated Orientation: Person Mood: Labile Behavioral Condition Comments: he is still labile and is not following direction such that, even though mostly sleeping, I feel he is still at risk of harm to self or others if left unrestrained. - Evaluation Review of Systems: normal voice and respirations. No vomiting. Pertinent History/Illicit Drugs/Medications/Results: substance use with agitation and psychosis. - Plan Need to Continue or Terminate Violent or Chemical Restraint: Try to remove restraints as less labile and able to follow direction.
--- NOTE | 2021-07-29 14:31 | ED Physician Documentation ---
Face to Face for Restraints - Immediate Situation Face to Face Evaluation Date: 07/29/21 Face to Face Evaluation Time: 14:30 Restraint Situation: Restraint removed Patient's Reactions to the Intervention: Compliant - Behavioral Condition Attitude: Open Behavior: Cooperative Orientation: Person, Place Mood: Other (sleepy) - Evaluation Review of Systems: normal voice and respirations. No vomiting. Pertinent History/Illicit Drugs/Medications/Results: substance use with agitation and psychosis. - Plan Need to Continue or Terminate Violent or Chemical Restraint: The patient is now able to answer questions and is following direction and states he does not feel anxious. He seems sleepy but is arousable. We are able to remove restraints.
[2021-07-29 15:02] VITALS: BP 116/67
--- NOTE | 2021-07-29 15:07 | ED Physician Documentation ---
ED Addendum - Addendum Addendum: 07/29/21 15:06 The patient is awake alert and conversant and cooperative. He has been out of restraints now. He has had some water and snacks. He is not agitated. He is interested in drug treatment. Social work talked with him and was able to find a substance abuse program for him and provide taxi transportation to it. The patient is amenable. He will be discharged from the ER to go there. Disposition: The patient is discharged from the ER in stable condition. Diagnoses: 1. Acute agitated psychosis with behavioral disturbance 2. Methamphetamine substance abuse
== END 2021-07-29 15:30 | disposition home or self-care (01) ==
LOC: EDUNIT# → ED 06:13
DX: F15.129 Other stimulant abuse with intoxication, unspecified (principal); F23 Brief psychotic disorder; F91.8 Other conduct disorders; R45.6 Violent behavior; R45.1 Restlessness and agitation; Z78.1 Physical restraint status; F17.200 Nicotine dependence, unspecified, uncomplicated
CPT/HCPCS: 36415; 51701; 80053; 80306; 80307; 80320; 80329; 81001; 83690; 84443; 85025; 96361; 96372; 96374; 96375; 99283; 99285; J2060; 81003; 87086